=== PATIENT | male | born 1960 | race Caucasian/White ===

== ENCOUNTER 2016-09-07 08:23 | Inpatient (IN) | payer MEDICARE ==
--- NOTE | ~2016-09-07 | CO ---
Unit #: [id number] #: [id number] Patient: RUDDY MCCLAIN [id number] [facility] [place] [facility]. [place], [place] [address] [id number] I MR#: [id number] NAME: RUDDY MCCLAIN ROOM: 218 Age: 56 Sex: M Admission Date: 09/07/2016 : 1960 Attending Physician: Nasreen Chavez M.D. Primary Care Physician: Jonathon Roman M.D. Consultation Date: 09/10/2016 CONSULTATION REPORT REASON FOR CONSULTATION Followup. DISCUSSION Mr. Ruddy Mcclain is a 56-year-old white male seen in room 218 bed 1 on 09/10/16 at [facility]. Patient was pleasant and cooperative, still somewhat confused. Patient requires some redirection but no agitation. Patient reports sleeping well, still having a problem with the anxiety, compliant with medication, no side effect from medication. Denied any hallucination but still guarded, paranoid, denied any suicidal or homicidal ideation, currently on Ativan 1 mg t.i.d., Cogentin 1 mg t.i.d. and haloperidol 5 mg t.i.d. Patient is also on Desyrel 100 mg q.h.s. for sleep. REVIEW OF SYSTEMS Complete review of systems is unremarkable. MENTAL STATUS EXAMINATION VITAL SIGNS: Temperature 97.6, heart rate 80, respirations 18, blood pressure 135/70, oxygen saturation 99%. GENERAL APPEARANCE: Patient dressed casually in hospital attire. ATTENTION SPAN AND CONCENTRATION: Fair to poor. SPEECH: Slow. ORIENTATION: Oriented in place and self. MOOD AND AFFECT: Labile. THOUGHT PROCESS: Circumstantial. THOUGHT CONTENT: Guarded, paranoid but denied any thoughts of harming self or others. Still having problem with the confusion. MEMORY: Recent and remote memory Poor. LANGUAGE: Fair. FUND OF KNOWLEDGE: Fair to slightly impaired. INSIGHT AND JUDGMENT: Fair to slightly impaired. DIAGNOSES PSYCHIATRIC 1. Delirium, F05. 2. Opiate use disorder, moderate to severe, F11.20. 3. ASSESSMENT/PLAN 1. Supportive psychotherapy and psychoeducation provided to patient. 2. Educated about benefits and side effects of medication and course and prognosis of illness. Unit #: [id number] #: [id number] Patient: RUDDY MCCLAIN 3. Advised to continue with current medication combination. If needed, we will make further adjustment on medication. 4. Advised to hold Haldol and Ativan if patient too sleepy. Dictated by... Alexandra Boyd/arash TD: 09/10/2016 14:29 JOB #: [id number] CONSULTATION REPORT Page 1 of 1 X Israel Armenta MD CONSULTATION REPORT
--- NOTE | ~2016-09-07 | CT71 ---
[facility] A Service of [facility] RADIOLOGY TEXT RESULTS PATIENT: RUDDY MARTINEZ [facility] 56 UNIT #: [id number] AGE: [address]: GEORGE MURRIETA MD SEX: M ORDER DR: [id number] [facility] [address]. [place], [place] [address] [id number] P MR#: [id number] Acc #: [id number] NAME: RUDDY MARTINEZ : 1960 SEX: M STUDY DATE/TIME: 09/07/2016 10:12 UNIT: [facility] ROOM: STUDY DESCRIPTION: CT Head Wo Contrast Attending Physician: Donato Mcintosh M.D. Ordering Physician: Donato Mcintosh M.D. Primary Care Physician: Du Renteria M.D. MEDICAL IMAGING REPORT This report is preliminary unless electronic signature is present EXAM CT head without contrast dated 09/07/[address] head without contrast dated 05/14/2016 HISTORY Patient fell 2-3 days ago, confusion ever since. Patient feels like floating. TECHNIQUE This CT exam was performed with one or more of the following radiation dose reduction techniques: automatic exposure control, adjustment of mA and/or kV according to patient size, and iterative reconstruction. FINDINGS CT of the head was obtained without contrast in the axial plane as per the protocol. Diffuse age-appropriate parenchymal volume is seen. There is mild prominence of the ventricles which is stable in the last 4 months. No space-occupying intracranial mass, mass effect, midline shift or hydrocephalus. Nasal septum is deviated to the right. Mastoid air cells, paranasal sinuses are well-aerated. Orbits with the ocular structures do not demonstrate any significant abnormality. IMPRESSION No demonstrable acute or new abnormality. Dictated by... Noah Chandra M.D. THIS IS AN ELECTRONICALLY VERIFIED REPORT Noah Chandra M.D. at 09/07/2016 3:20 PM CPR/jw [facility] A Service of [facility] RADIOLOGY TEXT RESULTS PATIENT: RUDDY MARTINEZ [facility] [address] : [birth year] UNIT #: [id number] AGE: [address]: GEORGE MURRIETA MD SEX: M ORDER DR: TD: 09/07/2016 11:18 JOB #: [id number] MEDICAL IMAGING REPORT Page 1 of 1 COPY
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
--- NOTE | ~2016-09-07 | CO ---
Unit #: [id number] #: [id number] Patient: RUDDY MARTINEZ [id number] [facility] [address]. [place], [place] [address] [id number] I MR#: [id number] NAME: RUDDY MARTINEZ ROOM: 218 Age: 56 Sex: M Admission Date: 09/09/2016 : 1960 Attending Physician: Nasreen Chavez M.D. Primary Care Physician: Jonathon Roman M.D. Consultation Date: 09/12/2016 CONSULTATION REPORT REASON FOR CONSULTATION Followup. DISCUSSION Mr. Velásquez is a 56-year-old white male seen in room 218 bed-1 on 09/13/16 at [facility]. Patient continues to be confused, needing close monitoring, needing hand restraints. Vital signs - 98.3, 89, 20, 116/83. Oxygen saturation 98%. Patient compliant with medication. Patient still somewhat guarded, withdrawn, flat, sad, dysphoric. Mood labile. Confused, needing redirection. REVIEW OF SYSTEMS Complete review of systems unremarkable. MENTAL STATUS EXAMINATION VITAL SIGNS: Please see above. GENERAL APPEARANCE: Patient dressed in hospital attire, lying in bed, somewhat restless, moving his hand restraint. Attention span and concentration poor. Speech somewhat rapid. Oriented in self and place. Mood and affect labile. Thought process circumstantial. Thought content - guarded, paranoid. Recent and remote memory poor. Language - fair. Fund of knowledge impaired. Insight and judgment impaired. DIAGNOSIS PSYCHIATRIC: Delirium - F050 Use disorder, moderate - F11.20 ASSESSMENT/PLAN 1. Supportive psychotherapy and psychoeducation provided to patient but patient unable to comprehend much. 2. Continue with current medications and (1) protocol. If needed, consider further additional medication. 3. slate worker is currently looking for appropriate placement. Suggest [facility] unit. Please feel free to call if any questions. Telephone number [phone]. Dictated by... Israel Armenta M.D. DUANE/brian Unit #: [id number] #: [id number] Patient: RUDDY MARTINEZ TD: 09/14/2016 06:17 JOB #: [id number] CONSULTATION REPORT Page 1 of 1 X Israel Armenta MD CONSULTATION REPORT
--- NOTE | ~2016-09-07 | CO ---
Unit #: [id number] #: [id number] Patient: RUDDY MCCLAIN [id number] [address] [place], [place] [address] [id number] I MR#: [id number] NAME: RUDDY MCCLAIN ROOM: 218 Age: 56 Sex: M Admission Date: 09/09/2016 : 1960 Attending Physician: Nasreen Chavez M.D. Primary Care Physician: Jonathon Roman M.D. Consultation Date: 09/11/2016 CONSULTATION REPORT REASON FOR CONSULTATION Followup. DISCUSSION Mr. Ruddy Mcclain is a 56-year-old white male, seen in room 218, bed 1 on 09/11/2016. The patient was admitted with UTI and altered mental status. Still in bilateral hand restrain, but able to answer some of the questions appropriately, still confused, guarded. The patient's labs showed HIV test negative. The patient's thyroid function tests within normal range. The patient is still having symptoms of psychosis, confusion, required redirection and bilateral hand restrain. The patient's vital signs; temperature 98.4, pulse 85, respiratory rate 18, blood pressure 134/80, oxygen saturation 98%. REVIEW OF SYSTEMS Complete review of systems is unremarkable. MENTAL STATUS EXAMINATION Vital signs, please see above. General appearance, the patient dressed in hospital attire, lying comfortably in bed, bilateral hands needing restraint. Currently receiving dialysis. Cooperative. Attention span and concentration, poor. Speech, disorganized. Oriented in self. Mood and affect, labile. Thought process, circumstantial. Thought content, guarded and paranoid. Recent and remote memory, poor. Language, fair. Fund of knowledge, impaired. Insight and judgment, impaired. DIAGNOSES Psychiatric: Delirium, F05; opioid use disorder, moderate, F11.20. ASSESSMENT/PLAN 1. Supportive psychotherapy and psychoeducation provided to patient, but the patient unable to understand much. 2. Continue with current medication and therapeutic protocol. If needed, consider further adjustment of medication. 3. Plan to consider transferring the patient to a Geropsych Unit once the patient is medically stable. Please feel free to call if any questions, telephone #[phone]. Dictated by... Israel Armenta M.D. SZC/trevor Unit #: [id number] #: [id number] Patient: RUDDY MCCLAIN TD: 09/12/2016 02:19 JOB #: [id number] CONSULTATION REPORT Page 1 of 1 X Israel Armenta MD CONSULTATION REPORT
--- NOTE | ~2016-09-07 | XA166 ---
[facility] A Service of [facility] RADIOLOGY TEXT RESULTS PATIENT: RUDDY MARTINEZ LOCATION: [facility] 218-01 : 56 UNIT #: [id number] AGE: [address]: Nasreen Chavez MD SEX: M ORDER DR: [id number] [facility] [address]. [place], [place] [address] [id number] P MR#: [id number] Acc #: [id number] NAME: RUDDY MARTINEZ : 1960 SEX: M STUDY DATE/TIME: 09/07/2016 10:00 UNIT: [facility] ROOM: STUDY DESCRIPTION: XA PICC Line Placement WO Port Attending Physician: Donato Mcintosh M.D. Ordering Physician: Donato Mcintosh M.D. Primary Care Physician: Du Renteria M.D. MEDICAL IMAGING REPORT This report is preliminary unless electronic signature is present EXAM Right arm PICC insertion, 09/07/2016. HISTORY IV access needed for antibiotic therapy. PRE-PROCEDURE The procedure was explained to the patient and/or patient manufacturer representative including risks, benefits, potential complications and potential for alternative forms of treatment. Informed consent was obtained, and prior to initiating the procedure a formal timeout procedure was performed. PROCEDURE Using full standard sterile barrier technique, including caps, gowns, gloves, masks, as well as sterile skin preparation and standard sterile draping, the right arm was prepped and draped in the usual fashion, and real-time sterile ultrasound guidance was used to localize an arm vein and to confirm vessel patency. A hard copy ultrasound image was recorded. After local anesthesia with 1% Xylocaine, the vein was punctured using real-time sterile ultrasound guidance, and an 0.018 guidewire was advanced into the superior vena cava, using fluoroscopic guidance. A 5-Citizen [place] dual-lumen PICC was then measured and deployed with the tip positioned in the superior vena cava. The position of the line was documented with a radiographic image. The line was secured in place with an adhesive dressing and an antibiotic patch was applied. Single fluoroscopic spot image. Total fluoro time was 0.1 minutes. IMPRESSION Successful placement of a 5-[place]izen [place], dual-lumen PowerPICC via the arm under ultrasound and fluoroscopic guidance. The tip of the PICC is in good position in the superior vena cava. [facility] A Service of [facility] RADIOLOGY TEXT RESULTS PATIENT: RUDDY MARTINEZ LOCATION: [facility] 218- : 56 UNIT #: [id number] AGE: [address]: Nasreen Chavez MD SEX: M ORDER DR: Dictated by... Wilman Francisco M.D. THIS IS AN ELECTRONICALLY VERIFIED REPORT Wilman Francisco M.D. at 09/11/2016 10:38 AM KACI/lauren TD: 09/07/2016 11:25 JOB #: [id number] MEDICAL IMAGING REPORT Page 1 of 1 COPY
--- NOTE | ~2016-09-07 | CO ---
Unit #: [id number] #: [id number] Patient: RUDDY MCCLAIN [id number]. [place], [place] [address] [id number] I MR#: [id number] NAME: RUDDY MCCLAIN ROOM: 218 Age: 56 Sex: M Admission Date: 09/09/2016 : 1960 Attending Physician: Nasreen Chavez M.D. Primary Care Physician: Jonathon Roman M.D. Consultation Date: 09/14/2016 CONSULTATION REPORT REASON FOR CONSULTATION Followup. HISTORY OF PRESENT ILLNESS MR. Ruddy Mcclain is a 56-year-old white male seen in room 218, bed 1 at [facility] on 09/14/2016. The patient was sleeping good. The patient is currently not in restraint, but has a sitter. No agitation. Redirectable, but still confused. Vital signs stable, 98.3, 86, 20, 124/82, oxygen saturation 100%. The patient has a long history of substance abuse, IV drug abuse. The patient's spouse says that she feels overwhelmed with the patient's fear. She reported that she has a disabled daughter at home. The patient was denied for inpatient psychiatric facility because of his medical needs. The patient is still having some disorganized thought process, but no aggressive behavior. Complete review of systems is unremarkable. MENTAL STATUS EXAMINATION General appearance, the patient is dressed in hospital attire. Vital signs stable. Hygiene and grooming fair. Attention and concentration poor. Speech is circumstantial. Oriented to self and place. Mood and affect labile. Thought process circumstantial. Thought content guarded. Denied any thoughts of harming himself or others. Recent and remote memory poor. Language fair. Fund of knowledge fair to slightly impaired. Insight and judgment fair to slightly impaired. DIAGNOSES Psychiatric: Delirium, F05, improving. Opiate use disorder, moderate to severe, F11.20. Psychosis, n.o.s., F29.0. ASSESSMENT/PLAN 1. Supportive psychotherapy, psychoeducation provided to the patient. 2. Educated about benefits and side effects of medication and course and prognosis of illness. 3. Advised to continue with current medication with a plan to consider sending the patient home with in-home services as the patient does show improvement and did not require any seclusion or restraints. 4. Advised to continue with current medications. Dictated by... Israel Armenta M.D. Unit #: [id number] #: [id number] Patient: RUDDY MCCLAIN SZC/gz TD: 09/15/2016 09:08 JOB #: [id number] CONSULTATION REPORT Page 1 of 1 X Israel Armenta MD X CONSULTATION REPORT
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
--- NOTE | ~2016-09-07 | EKG ---
PATIENT: RUDDY MARTINEZ UNIT #: [id number] Ventricular Rate: 79 BPM Atrial Rate: 79 BPM P-R Interval: 158 ms QRS Duration: 88 ms Q-T Interval: 406 ms QTC Calculation(Bezet): 465 ms P Henderson: -4 degrees Calculated R Henderson: -21 degrees Calculated T Henderson: 35 degrees Diagnosis Line: Normal sinus rhythm Diagnosis Line: Normal ECG Diagnosis Line: Diagnosis Line: Confirmed by ARIELLA NEGRON MD ([id number]) on 09/10/2016 Diagnosis Line: 3:57:32 PM INTERPRETING MD: JAMIL BAUER
--- NOTE | ~2016-09-07 | HP ---
Unit #: [id number] #: [id number] Patient: RUDDY MARTINEZ [id number] [address] [place], [place] [address] [id number] MR#: [id number] NAME: RUDDY MARTINEZ ROOM: Age: 56 Sex: M Admission Date: 09/07/2016 : 1960 Attending Physician: Donato Mcintosh M.D. Primary Care Physician: Jonathon Roman M.D. HISTORY AND PHYSICAL CHIEF COMPLAINT Altered mental status. HISTORY OF PRESENT ILLNESS The patient is a 56-year-old male with a history of IV opiate/heroin use and has been on methadone, history of end stage renal disease on hemodialysis, cirrhosis secondary to Hep-C, hypertension, hypothyroidism, anxiety, brought to the emergency room with altered mental status. The patient fell two to three days ago and has been confused since last one week. The patient is (1) and speaking gibberish. The patient denies any fever or chills, nausea or vomiting. The patient was found to have a prior UTI with 3+ leukocyte esterase and 200 to 300 urine WBCs. The patient had dialysis yesterday and was unable to finish the last hour of the dialysis secondary to the above complaints. The patient is being admitted for the above reasons. PAST MEDICAL HISTORY 1. History of IV opiate and heroin abuse in the past, currently on methadone. 2. History of bilateral leg wounds. 3. Stage 2-3 cirrhosis. 4. Hepatitis. 5. Hypertension. 6. Hypothyroidism. 7. End stage renal disease, on hemodialysis. 8. Anxiety. 9. Nephrolithiasis. 10. Chronic thrombocytopenia secondary to liver disease. PAST SURGICAL HISTORY 1. History of lithotripsy. 2. Fistula, left upper extremity. MEDICATIONS He is on: 1. Renagel. 2. Lipitor. 3. Trazodone. 4. Acetaminophen. 5. Flexeril. 6. Lorazepam. 7. Cogentin. 8. Levothyroxine. Unit #: [id number] #: [id number] Patient: RUDDY MARTINEZ ALLERGIES He is allergic to penicillin. SOCIAL HISTORY The patient is and lives with his . He has a history of smoking in the past. History of IV drug use in the past. Currently, his stated he is not using. FAMILY HISTORY Reviewed and none. REVIEW OF SYSTEMS Fourteen point review of systems was performed and only pertinent positive findings are described above, remaining are negative. PHYSICAL EXAMINATION GENERAL: The patient is lying on the bed, not in acute distress. VITALS: Temperature 97.8, pulse 84, respiratory rate 15, blood pressure 129/72, sat'ing 100% at room air. HEAD: Atraumatic, normocephalic. EENT: Pupils equal, round, reactive to light and accommodation. Extraocular movements are intact. Dry mucous membranes. NECK: Supple. LUNGS: Decreased air entry at the bases. HEART: Regular rate and rhythm. ABDOMEN: Soft. Positive bowel sounds. EXTREMITIES: Positive for left upper extremity fistula and PICC line in the right upper extremity. Bilateral lower extremity wounds. NEURO: Alert, awake, oriented x1. PSYCH: (2) . DIAGNOSTIC STUDIES LABORATORY DATA: Glucose 101, BUN 22, creatinine 0.3, sodium 133, potassium 3.5, chloride 97, bicarb 24, calcium 8.6, total protein 6.4, albumin 3.4, AST 57, ALT 22, alkaline phosphatase 55. Ammonia level is 11. Acetaminophen less than 10. Salicylate less than 4. Alcohol less than 5. INR is 1. WBC 4.7, hemoglobin 10.1, hematocrit 30.5, platelet 84. Urine tox is positive for benzodiazepine. UA shows 3+ leukocyte esterase, 100 glucose, 3+ blood, 10-25 urine RBCs, 200-300 urine WBCs and negative bacteria. IMAGING: Chest x-ray shows chronic blunting of the right CP angle, likely reflecting chronic pleural reaction as described. No new consolidation, pneumothorax or significant effusion. CT of the head show no demonstrable acute or new abnormality. ASSESSMENT AND PLAN 1. Altered mental status. 2. Urinary tract infection. 3. End stage renal disease, on hemodialysis. Plan is to admit the patient as observation to telemetry. Continue with Unit #: [id number] #: [id number] Patient: RUDDY MARTINEZ IV antibiotics with levofloxacin and consult renal for the hemodialysis and repeat the labs in the morning. Hold the lorazepam. Further recommendations will follow. Dictated by Barbara Melissa M.D. STEVE/df TD: 09/07/2016 13:12 JOB #: [id number] HISTORY AND PHYSICAL Page 1 of 1 X X HISTORY AND PHYSICAL
--- NOTE | ~2016-09-07 | CO ---
Unit #: [id number] #: [id number] Patient: RUDDY MCCLAIN [id number] [address] [place], [place] [address] [id number] MR#: [id number] NAME: RUDDY MCCLAIN ROOM: 316 Age: 56 Sex: M Admission Date: 09/07/2016 : 1960 Attending Physician: Nasreen Chavez M.D. Primary Care Physician: Jonathon Roman M.D. Consultation Date: 09/07/2016 CONSULTATION REPORT REASON FOR CONSULTATION Renal insufficiency. Thank you very much for asking me to see this patient in consultation. HISTORY OF PRESENT ILLNESS Mr. Ruddy Mcclain is a 56-year-old male with history of end-stage renal disease, on hemodialysis every Sunday, , and Sunday, some questioned if he missed dialysis on Sunday, and some questionable he had partial dialysis yesterday, who presented to the hospital with increased confusion, more agitation, was admitted. The patient had negative CT of the head. Upon presentation, we were asked to see the patient because of his kidney problems. The patient currently is arousable, but confused, appears delusional as well. He denies any chest pain or shortness of breath, but again very cloudy. PAST MEDICAL HISTORY History of end-stage renal disease, on hemodialysis again every Sunday, , Sunday; history of IV drug abuse of heroin, opioids, and methadone in the past; history of CVA; history of hepatitis C; history of hypothyroidism; history of anxiety; history of hypertension; history of cirrhosis; history of nephrolithiasis; history of thrombocytopenia. ALLERGIES Include penicillin. SOCIAL HISTORY Positive smoker. Positive drug use in the past. Although the note says according to his that he has not done any while. MEDICATIONS His medications upon presentation at home include Renvela 600 mg p.o. t.i.d. with meals, Lipitor 40 mg a day, Desyrel 100 mg at night, Tylenol/Benadryl p.r.n., Flexeril 10 mg at night, lorazepam 1 mg b.i.d., Cogentin 1 mg t.i.d., and levothyroxine 100 mcg a day. REVIEW OF SYSTEMS As mentioned in the HPI. Again very difficult to assess him. He is really asking most questions they were all negative. FAMILY HISTORY Noncontributory. PHYSICAL EXAMINATION Unit #: [id number] #: [id number] Patient: RUDDY MCCLAIN VITAL SIGNS: T-max 98.5, pulse is 80 to 100, blood pressure 129 to 140 over 72 to 84. HEENT: Normocephalic and atraumatic. Pupils are equal, round, and reactive to light. Extraocular muscles are intact. Hearing appears to be normal. Mouth is dry. No erythema. No exudate. NECK: Supple. No adenopathy. CARDIAC: Regular rhythm without a rub. No S3 or S4. LUNGS: Sounds clear bilaterally. No wheezes, rhonchi, or rales. ABDOMEN: Bowel sounds positive. Nontender. Soft. EXTREMITIES: Some trace lower extremity swelling. He has a fistula in his left arm with good thrill. NEUROLOGIC: Again he is able to move all extremities, but confused. : Deferred. DIAGNOSTIC STUDIES LABORATORY RESULTS: Shows sodium of 133, potassium 3.5, chloride is 97, bicarb is 24, BUN and creatinine 22 and 8.3, glucose 101, calcium is 8.6, albumin is 3.4. Ammonia level is 11. Negative Tylenol. Negative aspirin. Negative alcohol levels. Drug screen is positive for benzodiazepines. Rest is negative. UA shows specific gravity of 1.08, 2+ protein, negative ketones, 10 to 25 rbc's, 200 to 300 wbc's. Hemoglobin is 10.4, white count 4700, platelets 84,000. INR is 1.0. ASSESSMENT AND PLAN 1. End-stage renal disease. The patient with dialysis every Sunday, , Sunday. We will plan on dialyzing later today and then continue Sunday, , and Sunday dialysis. The patient's volume status is not significantly overloaded and his electrolytes are stable. We will follow. 2. History of anemia. Hemoglobin is above 11. We will hold EPO unless hemoglobin gets below 11. 3. Cirrhosis with ammonia level only 11. 4. Decreased mental status, delusional, questionable etiology. Further workup and treatment per primary. 5. Probable urinary tract infection. I agree with antibiotics. Await urine culture. Dictated by... Alexandra Mathew/trevor TD: 09/09/2016 02:49 JOB #: [id number] CONSULTATION REPORT Page 1 of 1 X Mannie Cooley MD CONSULTATION REPORT
--- NOTE | ~2016-09-07 | OR ---
Unit #: [id number] #: [id number] Patient: RUDDY MARTINEZ [id number] [facility]. [place], [place] [address] [id number] MR#: [id number] NAME: RUDDY MARTINEZ ROOM: 218 Date of Procedure: 09/13/2016 Admission Date: 09/09/2016 Surgeon: Ravindra Sanford M.D. : 1960 Attending Physician: Nasreen Chavez M.D. Primary Care Physician: Jonathon Roman M.D. OPERATIVE REPORT PROCEDURE PERFORMED 1. Left AV graft thrombectomy. 2. Left upper extremity fistulogram. 3. Axillary vein venoplasty (10 x 40 mm Emmet balloon). 4. Venous stent, 10 x 40 mm (Bush). INDICATIONS FOR PROCEDURE This is a 56-year-old male, IV drug user, who has been known to shoot up heroin through his shunt. He was admitted to the hospital for altered mental status changes and urinary tract infection. He went to dialysis the other day, dialyzing on Sunday, , Sunday, and his graft was noted to be thrombosed. We were asked by his supervisor inventory merchandising to reestablish dialysis access. Of note, given the fact he is currently an IV drug user, if unsuccessful, a tunneled dialysis catheter was not to be placed at the request of supervisor inventory merchandising because of infection risk. I talked to the patient about the risks and benefits of the operation. The risks include, but are not limited to, bleeding, blood vessel injury, inability to relieve the stenosis and reestablish flow, graft infection, and need for further procedures. The primary benefit of the procedure would be to establish dialysis access, so the patient can continue to receive dialysis. The patient expressed understanding, and elected to proceed with the operation. PREOPERATIVE INDICATIONS Arteriovenous graft with complication, thrombosis. POSTOPERATIVE DIAGNOSIS Arteriovenous graft with complication, thrombosis. ELEVATOR ATTENDANT Donato Pierre CSA. DESCRIPTION OF PROCEDURE After informed consent was obtained, the patient was brought to the operating table and placed in supine position. The patient had successful induction and intubation by anesthesia. The patient's left arm and chest were then prepped and draped in standard fashion. At this point, a time-out procedure was performed. The left AV graft had no pulse. I made an incision perpendicular to the graft above the elbow. I dissected through the subcutaneous tissue and immediately identified the graft. Circumferential dissection of the graft was obtained and vessel loop control was obtained. I then made a graftotomy with a #11 blade. There Unit #: [id number] #: [id number] Patient: DARGAVELL,RUDDY was no flow. I had some difficulty advancing the Traci catheter, by itself, and had to use the introducer wire that came with it. We were able to advance the Traci catheter balloon to approximately 30 cm, and I felt to go beyond the axilla into the chest. We did retrieve some thrombus. Multiple passes were made until there was no significant thrombus that was retrieved. There was good venous back bleeding. I then advanced a wire up into the graft, and over the wire to advanced an 8-Tajik sheath. I then performed a left upper extremity fistulogram. This demonstrated there was no significant stenosis within the graft. There was venous anastomotic stenosis, roughly 95%. I performed a cranial view, which opened out the stenosis a little bit better. There was also an axillary vein stenosis of roughly 80-90%, which was apparently the area that was treated before back in 05/[address] Willis. There was no evidence of central stenosis of the subclavian, innominate, or SVC. I then advanced a stiff angled Glidewire into the SVC. I advanced a 10 x 40 mm Emmet balloon and insufflated it for up to 2 minutes. I treated both the axillary vein stenosis and noticed some wasting. I also went up on the venous anastomosis. Upon completion of the venoplasty, subsequent venogram still demonstrated some residual recoil of roughly 50% of the axillary vein anastomosis. I again treated this with a 10 x 40 mm Emmet balloon, however, I went up to burst pressure of 22 mmHg. I held insufflation for 3 minutes. Subsequent venogram demonstrated an improvement of this area. I chose not to stent it, as I do not have a Viabahn stent, and it did respond reasonably well to balloon insufflation. The venous anastomosis did not respond that well to balloon insufflation, and I was hesitant to be more aggressive with balloon angioplasty. As a result, I selected a 10 x 40 mm Bush stent, which was deployed across the venous anastomosis. Ideally I would have used a Viabahn stent, however, none were available to me. After deployment of the stent, I postdilated it with a 10 x 40 mm Emmet balloon, but not more than nominal pressure. Subsequent venogram demonstrated brisk flow throughout the venous anastomosis with only roughly 10% residual recoil. I then turned my attention towards the arterial anastomosis. I dissected out more control of the graft proximally. I then advanced the 4-Tajik Traci balloon and retrieved fresh thrombus. After the third pass of the thrombectomy catheter, no additional clot was retrieved. There was brisk inflow. I advanced the wire into the arterial limb, advanced an 8-Tajik sheath. I shot a retrograde fistulogram to evaluate the arterial anastomosis and it appeared widely patent. I then closed the graftotomy with 6-0 Prolene in a running fashion. Adequate hemostasis was obtained. This wound was then closed with 3-0 Vicryl in deep dermal fashion and 4-0 Monocryl in subcuticular fashion. The wound was then covered with Dermabond. At the end of the case, all counts were correct and I was present for the entire duration of procedure. Total contrast used was 80 mL and total fluoro time was 5 minutes and 45 seconds. ESTIMATED BLOOD LOSS 200 mL. FINDINGS 1. Widely patent arterial anastomosis. 2. Venous anastomosis was stenotic, 90-95%. 3. Axillary vein stenosis, 80-90%. SPECIMEN Unit #: [id number] #: [id number] Patient: RUDDY MARTINEZ None. Dictated by... Alexandra Lake TD: 09/13/2016 12:57 JOB #: [id number] OPERATIVE REPORT Page 1 of 1 X X PROCEDURE OPERATIVE NOTE
--- NOTE | ~2016-09-07 | CO ---
Unit #: [id number] #: [id number] Patient: RUDDY MARTINEZ [id number] [facility] [address]. [place], [place] [address] [id number] I MR#: [id number] NAME: RUDDY MARTINEZ ROOM: 316 Age: 56 Sex: M Admission Date: 09/07/2016 : 1960 Attending Physician: Nasreen Chavez M.D. Primary Care Physician: Jonathon Roman M.D. Consultation Date: 09/08/2016 CONSULTATION REPORT REASON FOR CONSULTATION Delirium, opioid abuse. HISTORY OF PRESENT ILLNESS Mr. Velásquez is a 56-year-old male, seen on 09/08/2016 in room 316, bed 1 at [facility]. The patient was confused, agitated, and received p.r.n. Haldol, Cogentin, Ativan last night and Haldol again this morning for agitation, needing restraints. The patient was unable to give any coherent history, tried to elope. The patient has a history of opioid and heroin abuse IV, also methadone. The patient has a history of hepatitis C, hypertension, hypothyroidism, cirrhosis, admitted with altered mental state. The patient also has end-stage renal disease. The patient unable to give any coherent history. PAST PSYCHIATRIC HISTORY Remarkable for history of depression, anxiety, substance abuse. MEDICAL HISTORY AND MEDICATION HISTORY History of IV opioid abuse, heroin abuse, currently on methadone. Bilateral leg wounds, stage 2 to 3 cirrhosis, hepatitis, hypertension, hypothyroidism, end-stage renal disease on hemodialysis, anxiety, nephrolithiasis, chronic thrombocytopenia secondary to liver disease. MEDICATIONS Lipitor, trazodone, acetaminophen, Flexeril, lorazepam, Cogentin, levothyroxine. ALLERGIES Penicillin. FAMILY HISTORY AND SOCIAL HISTORY The patient lives with his , has a good support. No history of abuse, but history of substance abuse as mentioned above. REVIEW OF SYSTEMS Complete review of systems is remarkable for agitation. MENTAL STATUS EXAMINATION Vital signs; temperature 98.3, pulse 89, respirations 20, blood pressure 143/81, oxygen saturation 99%. General appearance; the patient dressed casually. Attention span and concentration, poor. Speech, disorganized. Oriented in self. Mood and affect, labile. Thought process, circumstantial. Thought content, guarded, paranoid, agitated, but denied any thoughts of harming self or others. Recent and remote memory, poor. Unit #: [id number] #: [id number] Patient: RUDDY MARTINEZ Language, fair. Fund of knowledge, impaired. Insight and judgment, impaired. DIAGNOSES Psychiatric: Delirium, F05; opioid use disorder, moderate to severe, F11.20. Secondary diagnosis: Deferred. Medical diagnosis: Please refer to H and P. Stressors: Psychosocial stressors. ASSESSMENT AND PLAN Supportive psychotherapy and psychoeducation provided to patient, but the patient unable to comprehend. Advised Haldol 5 mg t.i.d., Cogentin 1 mg t.i.d., and Ativan 1 mg t.i.d. Advised to hold medication if the patient too sleepy. We will closely monitor. If needed, consider further adjustment of medication. Please feel free to call if any questions telephone #[phone]. Dictated by... Alexandra Boyd/trevor TD: 09/08/2016 19:02 JOB #: [id number] CONSULTATION REPORT Page 1 of 1 X Israel Armenta MD X CONSULTATION REPORT
--- NOTE | ~2016-09-07 | CR72 ---
[facility] A Service of [facility] RADIOLOGY TEXT RESULTS PATIENT: RUDDY MARTINEZ LOCATION: C3A 316-01 : 56 UNIT #: [id number] AGE: [address]: GEORGE MURRIETA MD SEX: M ORDER DR: [id number] [place], [place] [address] [id number] MR#: [id number] Acc #: [id number] NAME: RUDDY MARTINEZ : 1960 SEX: M STUDY DATE/TIME: 09/07/2016 9:08 UNIT: [facility] ROOM: STUDY DESCRIPTION: CR Chest Single View Portable Attending Physician: Donato Mcintosh M.D. Ordering Physician: Donato Mcintosh M.D. Primary Care Physician: Du Renteria M.D. MEDICAL IMAGING REPORT This report is preliminary unless electronic signature is present EXAM Frontal chest 09/07/2016 INDICATION 56-year-old male with altered mental status, confusion, shortness of air, symptoms began 2 days ago after a fall. TECHNIQUE Frontal chest compared with 05/14/2016. FINDINGS Cardiac silhouette is within normal limits. The vascularity is normal. There is no dense consolidation. There is blunting of the right CP angle which is probably unchanged from the prior study and therefore likely reflects chronic pleural reaction rather than a chronic trace to small right effusion. No pneumothorax. IMPRESSION Chronic blunting of the right CP angle likely reflecting chronic pleural reaction as described. No new consolidation, pneumothorax or significant effusion. Dictated by... Jagdish Chowdhury M.D. THIS IS AN ELECTRONICALLY VERIFIED REPORT Jagdish Chowdhury M.D. at 09/07/2016 5:31 PM UCHE/dayo TD: 09/07/2016 10:05 JOB #: [id number] [facility] A Service of [facility] RADIOLOGY TEXT RESULTS PATIENT: RUDDY MARTINEZ LOCATION: [facility] 316-01 : 56 UNIT #: [id number] AGE: [address]: GEORGE MURRIETA MD SEX: M ORDER DR: MEDICAL IMAGING REPORT Page 1 of 1 COPY
--- NOTE | ~2016-09-07 | DS ---
Unit #: [id number] #: [id number] Patient: RUDDY MARTINEZ [id number] [place], [place] [address] [id number] MR#: [id number] NAME: RUDDY MARTINEZ ROOM: 218 Age: 56 Sex: M Admission Date: 09/07/2016 : 1960 Discharge Date: 09/14/2016 Attending Physician: Nasreen Chavez M.D. Primary Care Physician: Jonathon Roman M.D. DISCHARGE SUMMARY ADDENDUM Please see the discharge summary dictated from September 11, 2016 for details of initial part of hospital stay. During the time of transition of discharge to possible inpatient psych rehab, it was noted patient's AV fistula on left arm began to malfunction. Consultation was placed to vascular services. Patient underwent ultimately on September 13, 2016, left AV graft thrombectomy as well as left upper extremity fistulogram. Afterwards, dialysis was performed x2. Fistula seems to be working appropriately and now patient currently is stable for discharge. I reviewed his hospital course, medications, as well as, overall prognosis with Dr. Armenta of psychiatry services. At this point in time, he does not meet inpatient criteria for psychiatric facility. Therefore, he will be discharged home. His medication regimen at time of discharge will be reviewed by Dr. Armenta in regard to his medications including Cogentin, Haldol, as well as, Ativan. Ultimately, he will follow up as an outpatient with his primary care physician as well as a psychiatrist. This will be set up at time of discharge. Overall, this patient's long-term prognosis is poor secondary to his lack of insight into his disease, ongoing IV drug abuse. FINAL DISCHARGE DIAGNOSES Please see above includin. Acute psychosis with underlying psychiatric disorder. 2. Ongoing IV drug abuse. 3. Pyuria with urine culture negative. 4. End-stage renal disease on hemodialysis. 5. Hyperlipidemia. 6. Hepatitis C. 7. Cirrhosis of the liver. 8. Malfunctioning arteriovenous fistula, status post thrombectomy. DISCHARGE MEDICATIONS Remain unchanged with review underway by Dr. Armenta of psychiatry services. Unit #: [id number] #: [id number] Patient: RUDDY MARTINEZ PROGNOSIS Long-term prognosis of this patient is poor. Life expectancy is likely less than one year. Dictated by... Alexandra Sanchez TD: 09/15/2016 11:45 JOB #: [id number] DISCHARGE SUMMARY Page 1 of 1 X Nasreen Chavez MD X DISCHARGE SUMMARY
--- NOTE | ~2016-09-07 | CO ---
Unit #: [id number] #: [id number] Patient: RUDDY MARTINEZ [id number] [address] [address] [id number] I MR#: [id number] NAME: RUDDY MARTINEZ ROOM: 218 Age: 56 Sex: M Admission Date: 09/09/2016 : 1960 Attending Physician: Nasreen Chavez M.D. Primary Care Physician: Jonathon Roman M.D. Consultation Date: 09/13/2016 CONSULTATION REPORT REASON FOR CONSULTATION Followup. DISCUSSION Mr. Velásquez is a 56-year-old male seen in room 218, bed 1, on 09/13/2016. Patient diagnosed with IV drug abuse, delirium, admitted with altered mental state, diagnosed with end stage renal disease. Patient receiving dialysis on Sunday, Sunday, , Sunday schedule. Patient also diagnosed with cirrhosis of the liver, hepatitis C, hypertension. Patient still needing restraint bilateral arms and confusion, agitation, mood lability. Patient did not show any major aggressive episode, while compliant with medications. PHYSICAL EXAMINATION VITAL SIGNS: Patient's vital signs is a 98.6, 80, 20, 121/73, oxygen saturation 97%. GENERAL APPEARANCE: Patient dressed in hospital attire, needing bilateral hand restraint. ATTENTION SPAN AND CONCENTRATION: Poor. SPEECH: Disorganized. ORIENTED: Oriented to self and place. MOOD AND AFFECT: Labile. THOUGHT PROCESS: Circumstantial. THOUGHT CONTENT: Guarded, paranoid. MEMORY: Poor. Recent and remote memory fair to poor. LANGUAGE: Fair. INSIGHT AND JUDGMENT: Fair to slightly impaired. DIAGNOSTIC STUDIES PSYCHIATRIC: 1. Delirium F05. 2. Opiate use, moderate to severe, F1l.20. ASSESSMENT/PLAN 1. Supported psychotherapy, psychoeducation provided to patient. 2. Educated about benefits and side effects of medication and course and prognosis of illness. 3. Advised to continue with current medication regimen. If needed, consider further additional medication and currently looking for appropriate place for patient, suggest [facility] or [facility] where patient can be treated for both his condition, dialysis, as well as his substance abuse and current psychiatric condition. Unit #: [id number] #: [id number] Patient: RUDDY MARTINEZ Dictated by... Alexandra Boyd/lizeth TD: 09/14/2016 06:56 JOB #: [id number] CONSULTATION REPORT Page 1 of 1 X Israel Armenta MD X CONSULTATION REPORT
[~2016-09-07 08:23] MED LIST: AUGMENTIN875 MG PO; CALCIUM ACETAT667 M1 PO; CLONIDINE HCL0.3 MG PO; COLACE50 MG PO; FERRO-TIME325 MG PO; K-DUR20 ME1 PO; KLONOPIN PO; LASIX PO; LEXAPRO PO; LOVAZA1 G PO; METHADONE HCL10 MG PO; METHADONE PO; SANTYL15 G1 TP; SYNTHROID0.1 MG PO; VIBRAMYCIN100 M1 PO; VITAMIN D2000 UNI1 PO; XIFAXAN550 MG PO; ZANTAC150 MG PO
[2016-09-07 10:01] LABS: POC - CKMB 1.5 ng/mL (0.0-7.9); POC - TROPONIN <0.05 ng/mL (<=0.05)
[2016-09-07 10:14] LABS: BASOPHIL% 0.7 % (0-2.5); EOSINOPHIL# 0.3 X10e3 (0-0.7); EOSINOPHIL% 7.5 % (0.0-7.0); HEMATOCRIT 30.5 % (38.0-50.0); HEMOGLOBIN 10.1 gm/dL (13.0-16.0); LYMPHOCYTE# 0.9 X10e3 (1.0-3.5); LYMPHOCYTE% 19.6 % (17.0-45.0); MEAN CELL VOLUME 95.3 FL (83-96); MEAN CORPUSCULAR HEMOGLOBIN 31.6 PG (28-34); MEAN CORPUSCULAR HGB CONC 33.2 g/dL (30-36); MEAN PLATELET VOLUME 7.9 FL (6.5-11.5); MONOCYTE# 0.6 X10e3 (0-1.0); MONOCYTE% 12.1 % (3.0-12.0); NEUTROPHIL# 2.8 X10e3 (1.5-7.1); NEUTROPHIL% 60.1 % (40-75); PLATELET COUNT 84 X10e3 (140-420); RED CELL DISTRIBUTION WIDTH 15.4 % (11.0-15.5); WHITE BLOOD COUNT 4.7 X10e3 (4.0-10.5)
[2016-09-07 10:25] LABS: PROTHROMBIN TIME (PATIENT) 10.9 SECONDS (9.6-11.5)
[2016-09-07 10:41] LABS: DIFF IND YES
[2016-09-07 10:44] LABS: PLATELET ESTIMATE DECREASED (NORMAL)
[2016-09-07 10:45] LABS: ANISOCYTOSIS MOD; SCHISTOCYTES PRESENT
[2016-09-07 10:54] LABS: ALBUMIN SERUM 3.4 g/dL (3.5-5.0); ALKALINE PHOSPHATASE 65 U/L (32-92); ALT (SGPT) 22 U/L (10-40); AST (SGOT) 57 U/L (10-42); BILIRUBIN, DIRECT 0.2 mg/dL (0.0-0.2); BILIRUBIN,INDIRECT 0.4 mg/dL (0.0-0.9); BILIRUBIN,TOTAL 0.6 mg/dL (0.2-2.0); BLOOD UREA NITROGEN 22 mg/dL (9-23); BUN/CREATININE RATIO 2.65; CALCIUM SERUM 8.6 mg/dL (8.4-10.2); CARBON DIOXIDE 24 mmol/L (22-31); CHLORIDE 97 mmol/L (100-111); CREATININE SERUM 8.3 mg/dL (0.6-1.4); GLOM FILT RATE Estimated 6.4 mL/min (>60); GLUCOSE FASTING 101 mg/dL (70-110); POTASSIUM 3.5 mmol/L (3.5-5.1); PROTEIN TOTAL SERUM 6.4 g/dL (6.0-8.3); SALICYLATE <4.0 mg/dL; SODIUM 133 mmol/L (135-145)
[2016-09-07 10:55] LABS: ACETAMINOPHEN <10 ug/mL; ALCOHOL BLOOD <5 mg/dL (0)
[2016-09-07 11:26] LABS: URINE SOURCE CLEAN CATCH
[2016-09-07 11:32] LABS: URINE APPEARANCE CLOUDY; URINE BILIRUBIN NEG (NEG); URINE BLOOD 3+ (NEG); URINE COLOR YELLOW; URINE GLUCOSE 100 MG/DL (NEG); URINE KETONE NEG (NEG); URINE LEUKOCYTE ESTERASE 3+ (NEG); URINE NITRATE NEG (NEG); URINE PH 8.5 (5-8); URINE PROTEIN 2+ (NEG); URINE SPECIFIC GRAVITY 1.008 (1.003-1.035); URINE UROBILINOGEN 0.2 MG/DL (NEG)
[2016-09-07 11:35] LABS: CULTURE INDICATED? YES; URINE BACTERIA AUWI NEG (NEGATIVE); URINE SQUAMOUS EPITHELIAL CELL NONE SEEN /[HPF]; UWBCS1 AUWI 200-300 (0-5)
[2016-09-07 11:42] LABS: POC - CKMB 1.4 ng/mL (0.0-7.9); POC - TROPONIN <0.05 ng/mL (<=0.05)
[2016-09-07] MEDS ORDERED: RENAGEL800 MG PO (11:54)
[2016-09-07] MEDS ORDERED: LIPITOR40 MG PO (11:54)
[2016-09-07] MEDS ORDERED: DESYREL100 MG PO (11:55)
[2016-09-07] MEDS ORDERED: EQ ACETAMINOPH PO (11:55)
[2016-09-07] MEDS ORDERED: FLEXERIL10 MG PO (11:56)
[2016-09-07] MEDS ORDERED: LORAZEPAM1 MG PO (11:56)
[2016-09-07] MEDS ORDERED: COGENTIN1 MG PO (11:57)
[2016-09-07] MEDS ORDERED: LEVOTHYROXINE100 MC1 PO (11:58)
[2016-09-07 11:59] LABS: AMPHETAMINE NEG (NEG); BARBITURATES NEG (NEG); BENZODIAZEPINES POS (NEG); COCAINE NEG (NEG); MARIJUANA NEG (NEG); OPIATES NEG (NEG); TRICYCLIC ANTIDEPRESSANTS NEG (NEG); U METHADONE NEG (NEG)
[2016-09-08 08:09] LABS: BASOPHIL% 0.9 % (0-2.5); EOSINOPHIL# 0.3 X10e3 (0-0.7); EOSINOPHIL% 9.4 % (0.0-7.0); HEMATOCRIT 34.7 % (38.0-50.0); HEMOGLOBIN 11.6 gm/dL (13.0-16.0); LYMPHOCYTE# 0.8 X10e3 (1.0-3.5); LYMPHOCYTE% 24.7 % (17.0-45.0); MEAN CELL VOLUME 94.7 FL (83-96); MEAN CORPUSCULAR HEMOGLOBIN 31.5 PG (28-34); MEAN CORPUSCULAR HGB CONC 33.3 g/dL (30-36); MEAN PLATELET VOLUME 7.8 FL (6.5-11.5); MONOCYTE# 0.4 X10e3 (0-1.0); MONOCYTE% 13.1 % (3.0-12.0); NEUTROPHIL# 1.8 X10e3 (1.5-7.1); NEUTROPHIL% 51.9 % (40-75); PLATELET COUNT 83 X10e3 (140-420); RED BLOOD COUNT 3.67 X10e (3.90-5.60); RED CELL DISTRIBUTION WIDTH 15.5 % (11.0-15.5); WHITE BLOOD COUNT 3.4 X10e3 (4.0-10.5)
[2016-09-08 08:10] LABS: DIFF IND NO
[2016-09-08 08:52] LABS: ALBUMIN SERUM 3.6 g/dL (3.5-5.0); BILIRUBIN,TOTAL 0.9 mg/dL (0.2-2.0); BUN/CREATININE RATIO 1.5; CALCIUM SERUM 9.3 mg/dL (8.4-10.2); MAGNESIUM 2.2 mg/dL (1.6-3.0); PHOSPHOROUS 4.3 mg/dL (2.5-4.6); POTASSIUM 3.9 mmol/L (3.5-5.1); PROTEIN TOTAL SERUM 7.1 g/dL (6.0-8.3)
[2016-09-08 08:56] LABS: CREATININE SERUM 5.3 mg/dL (0.6-1.4)
[2016-09-09 07:46] LABS: HEMATOCRIT 33.7 % (38.0-50.0); HEMOGLOBIN 11.2 gm/dL (13.0-16.0); MEAN CELL VOLUME 93.6 FL (83-96); MEAN CORPUSCULAR HEMOGLOBIN 31.2 PG (28-34); MEAN CORPUSCULAR HGB CONC 33.4 g/dL (30-36); MEAN PLATELET VOLUME 7.8 FL (6.5-11.5); RED BLOOD COUNT 3.6 X10e (3.90-5.60); RED CELL DISTRIBUTION WIDTH 15.3 % (11.0-15.5)
[2016-09-09 08:33] LABS: BUN/CREATININE RATIO 2.36; CALCIUM SERUM 9.1 mg/dL (8.4-10.2); GLOM FILT RATE Estimated 7.1 mL/min (>60); POTASSIUM 3.8 mmol/L (3.5-5.1)
[2016-09-09 08:34] LABS: CREATININE SERUM 7.6 mg/dL (0.6-1.4)
[2016-09-11 09:10] LABS: HEMATOCRIT 34.6 % (38.0-50.0); HEMOGLOBIN 11.6 gm/dL (13.0-16.0); MEAN CORPUSCULAR HEMOGLOBIN 31.3 PG (28-34); MEAN CORPUSCULAR HGB CONC 33.7 g/dL (30-36); MEAN PLATELET VOLUME 7.9 FL (6.5-11.5); RED BLOOD COUNT 3.72 X10e (3.90-5.60); RED CELL DISTRIBUTION WIDTH 15.5 % (11.0-15.5); WHITE BLOOD COUNT 5.2 X10e3 (4.0-10.5)
[2016-09-11 09:45] LABS: BUN/CREATININE RATIO 2.46; CREATININE SERUM 6.9 mg/dL (0.6-1.4); POTASSIUM 3.6 mmol/L (3.5-5.1)
[2016-09-11 12:18] LABS: FOLATE (FOLIC ACID) 8.4 ng/mL (>5.8)
[2016-09-13 09:22] LABS: HEMATOCRIT 35.8 % (38.0-50.0); HEMOGLOBIN 11.8 gm/dL (13.0-16.0); INR 1.1; MEAN CELL VOLUME 94.4 FL (83-96); MEAN CORPUSCULAR HEMOGLOBIN 31.2 PG (28-34); MEAN CORPUSCULAR HGB CONC 33.1 g/dL (30-36); MEAN PLATELET VOLUME 9.1 FL (6.5-11.5); PROTHROMBIN TIME (PATIENT) 11.8 SECONDS (9.6-11.5); RED BLOOD COUNT 3.79 X10e (3.90-5.60); RED CELL DISTRIBUTION WIDTH 15.3 % (11.0-15.5)
[2016-09-13 09:32] LABS: BUN/CREATININE RATIO 3.17; CALCIUM SERUM 8.5 mg/dL (8.4-10.2); CREATININE SERUM 8.5 mg/dL (0.6-1.4); GLOM FILT RATE Estimated 6.2 mL/min (>60); POTASSIUM 3.7 mmol/L (3.5-5.1)
[2016-09-14] MEDS ORDERED: COGENTIN1 M1 PO (15:03)
[2016-09-14] MEDS ORDERED: HALDOL PO (15:03)
== END 2016-09-14 18:03 | disposition home health service (06) | DRG 876 ==
LOC: CED 08:23 → C3A PCU 12:40 → CED 12:40 → CEDOF 12:40 → CED 13:20 → CEDOF 13:20 → C3A PCU 15:32 → CEDOF 15:32 → C3A PCU 09-08 07:08 → C2A 09-09 13:30 → C3A PCU 09-09 13:30 → C2A 09-09 13:30 → CEDOF 09-09 13:30 → C3A PCU 09-10 00:42 → C2A 09-10 00:42
PROVIDERS: Emergency Medicine; Family Medicine; Internal Medicine; Physician Assistant Medical; Surgery; Surgery Vascular Surgery
PROC: 5A1D60Z (ICD-10-PCS; 2016-09-09)
PROC: 02HV33Z Insertion of Infusion Device into Superior Vena Cava, Percutaneous Approach (ICD-10-PCS; 2016-09-09)
PROC: B548ZZA Ultrasonography of Superior Vena Cava, Guidance (ICD-10-PCS; 2016-09-09)
PROC: B50WYZZ Plain Radiography of Dialysis Shunt/Fistula using Other Contrast (ICD-10-PCS; 2016-09-13)
PROC: 03C60ZZ Extirpation of Matter from Left Axillary Artery, Open Approach (ICD-10-PCS; principal; 2016-09-13 07:30)
PROC: 05780DZ Dilation of Left Axillary Vein with Intraluminal Device, Open Approach (ICD-10-PCS; 2016-09-13 07:30)
DX: F23 Brief psychotic disorder (principal); I12.0 Hypertensive chronic kidney disease with stage 5 chronic kidney disease or end stage renal disease; N18.6 End stage renal disease; D69.59 Other secondary thrombocytopenia; F05 Delirium due to known physiological condition; N39.0 Urinary tract infection, site not specified; F11.20 Opioid dependence, uncomplicated; T82.868A Thrombosis due to vascular prosthetic devices, implants and grafts, initial encounter; R41.82 Altered mental status, unspecified; F17.210 Nicotine dependence, cigarettes, uncomplicated; Z99.2 Dependence on renal dialysis; B19.20 Unspecified viral hepatitis C without hepatic coma; K74.60 Unspecified cirrhosis of liver; E03.9 Hypothyroidism, unspecified; F41.9 Anxiety disorder, unspecified; Y71.1 Therapeutic (nonsurgical) and rehabilitative cardiovascular devices associated with adverse incidents; E78.5 Hyperlipidemia, unspecified; Z88.0 Allergy status to penicillin; Z87.442 Personal history of urinary calculi
CPT/HCPCS: 36415; 70450; 71010; 75710; 76001; 76937; 77001; 80048; 80053; 80076; 80307; 81003; 82140; 82553; 82607; 82746; 82947; 83735; 84100; 84439; 84443; 84484; 85025; 85027; 85610; 85730; 87040; 87086; 87806; 93005; 94760; 99285; C1725; C1751; C1769; C1876; G0480; J0515; J1630; J1644; J1650; J1956; J2060; J2720; J2765; J3010; J3370; Q4081

== ENCOUNTER 2016-11-27 09:51 | Observation (INO) | payer MEDICARE ==
[~2016-11-27] VITALS: Ht 182.9 cm; Wt 77.1 kg
--- NOTE | ~2016-11-27 | CO ---
Unit #: [id number] #: [id number] Patient: RUDDY MARTINEZ [id number] [address] [place], [place] [address] [id number] I MR#: [id number] NAME: RUDDY MARTINEZ ROOM: 448 Age: 56 Sex: M Admission Date: 11/27/2016 : 1960 Attending Physician: Barbara Melissa M.D. Primary Care Physician: Jonathon Roman M.D. Consultation Date: 11/27/2016 CONSULTATION REPORT REASON FOR CONSULT End stage renal disease. Thank you very much for asking us to see this patient in consultation. This patient is a 56-year-old male with a history of end stage renal disease on hemodialysis every Sunday, and Sunday, who apparently was confused earlier today and brought into the hospital and was diagnosed with hypoglycemia. The patient was admitted. We were asked to see the patient due to his renal failure. The patient, according to his , had not been eating well the last few days. He did have some episodes of nausea and vomiting and a little diarrhea on Sunday but none since then but apparently is not eating well over the last few days but really had a hard time telling me exactly how much. He is alert and oriented to place and person but did not know the year for the first two to three answers. He denies any chest pain, shortness of breath, any severe pain, abdominal pain currently. PAST MEDICAL HISTORY 1. History of CVA in the past. 2. History of hepatitis C. 3. History of hypothyroidism. 4. History of end stage renal disease. 5. History of hypertension. 6. History of cirrhosis. 7. He has a history of IV drug abuse in the past although apparently denies any recently. 8. History of leg wounds in the past. 9. History of anxiety. 10. History of chronic thrombocytopenia. MEDICATIONS His medicines at home, in the handwritten sheet, appears to be: 1. Renvela 800 mg p.o. t.i.d. with meals. 2. Ativan 1 mg b.i.d. 3. Levothyroxine 100 mcg a day. 4. Benztropine 1 mg t.i.d. 5. Trazodone 100 mg q. h.s. 6. Clonidine 0.3 mg q.i.d. REVIEW OF SYSTEMS As mentioned in the HPI. SOCIAL HISTORY Positive smoker. Denies any alcohol or any IV drugs now. Unit #: [id number] #: [id number] Patient: RUDDY MARTINEZ FAMILY HISTORY Noncontributory. ALLERGIES Include Rocephin. PHYSICAL EXAMINATION GENERAL: He is alert. VITAL SIGNS: Temperature is 98.1, pulse 78-88, blood pressure 116-158/67-77. HEENT: Normocephalic, atraumatic. Pupils are equal, round, reactive to light. Extraocular muscles are intact. Hearing appears to be normal. Mouth is clear. No erythema, no exudate. NECK: Supple. No JVD. CARDIAC: regular rhythm without a rub. No S3, no S4. LUNGS: Clear bilaterally. ABDOMEN: Bowel sounds positive. Nontender, soft. EXTREMITIES: He has no significant lower extremity swelling. He has a fistula in his left upper arm with a good thrill. NEURO: Again, he is alert. Questionable a little confusion. : Deferred. DIAGNOSTIC STUDIES IMAGING: CT scan of the head is pending. LABORATORY: He had a UA that shows specific gravity 1.01, 3+ protein, 10-25 WBCs, 5-10 RBCs, positive Urine culture is pending. He had a drug screen that was positive for benzos. Otherwise, drug screen is negative. Also negative is acetaminophen, Tylenol and alcohol. Sodium is 134, potassium 3.3, chloride is 94, bicarb is 27, BUN and creatinine 27 and 7.2 with glucose of 106 now, calcium is 12.5, white count 8700, platelets 74,000, calcium 9.4. ASSESSMENT AND PLAN 1. End stage renal disease: Certainly, his potassium and his volume status appears to be pretty good. I don't notice any extra volume on board. Again, potassium level is on the low side. Will plan on dialyzing him tomorrow. We will follow his electrolytes. 2. Hypoglycemia: Admitting physician asked me to address his fluids and will go ahead and put him on some D5 normal saline at 60 mL/hour but certainly watch for volume overload with his end stage renal disease. Will give him one dose of oral potassium as well today. 3. Intermittently decreased mental status per primary. 4. Probable urinary tract infection: Will await urine culture results. Dictated by.Alexandra Landon/brian Unit #: [id number] #: [id number] Patient: RUDDY MARTINEZ TD: 11/28/2016 07:49 JOB #: [id number] CONSULTATION REPORT Page 1 of 1 X Mannie Cooley MD X CONSULTATION REPORT
--- NOTE | ~2016-11-27 | CR72 ---
[facility] A Service of [facility] RADIOLOGY TEXT RESULTS PATIENT: RUDDY MARTINEZ LOCATION: CEDOF : 56 UNIT #: [id number] AGE: [address]: GEORGE MELISSA MD SEX: M ORDER DR: [id number] [facility] [address] [facility] [facility]. [place], [place] [address] [id number] I MR#: [id number] Acc #: [id number] NAME: RUDDY MARTINEZ : 1960 SEX: M STUDY DATE/TIME: 11/27/2016 UNIT: CEDOF ROOM: 04657 STUDY DESCRIPTION: CR Chest Single View Portable Attending Physician: George Melissa M.D. Ordering Physician: Donato Mcintosh M.D. Primary Care Physician: Jonathon Roman M.D. MEDICAL IMAGING REPORT This report is preliminary unless electronic signature is present EXAM Chest portable 11/27/2016 1102 hours HISTORY 56-year-old man with low blood sugar and confusion today. History of hypertension and hypothyroidism, diabetes and hepatitis C. COMPARISON 09/07/2016. FINDINGS Portable upright chest demonstrates stable mild cardiac enlargement with minimally tortuous aorta. The pulmonary vascularity is normal. The lungs are clear and there are no effusions. There is chronic scarring at the medial left lung base. IMPRESSION Heart size at the upper limits of normal with minimally tortuous aorta, unchanged. There is stable linear scarring at the medial left lung base. There is no acute pulmonary or pleural finding. Dictated by... Coral Mendez M.D. THIS IS AN ELECTRONICALLY VERIFIED REPORT Coral Mendez M.D. at 11/27/2016 6:53 PM ROSA/lily TD: 11/27/2016 17:08 JOB #: [id number] MEDICAL IMAGING REPORT [facility] A Service of [facility] RADIOLOGY TEXT RESULTS PATIENT: RUDDY MARTINEZ LOCATION: CEDOF : 56 UNIT #: [id number] AGE: [address]: GEORGE MELISSA MD SEX: M ORDER DR: Page 1 of 1 COPY
--- NOTE | ~2016-11-27 | EKG ---
PATIENT: RUDDY MARTINEZ UNIT #: [id number] Ventricular Rate: 88 BPM Atrial Rate: 88 BPM P-R Interval: 154 ms QRS Duration: 84 ms Q-T Interval: 362 ms QTC Calculation(Bezet): 438 ms P [place]: 11 degrees Calculated R [place]: -24 degrees Calculated T [place]: -5 degrees Diagnosis Line: Normal sinus rhythm Diagnosis Line: Minimal voltage criteria for LVH, may be normal Diagnosis Line: variant Diagnosis Line: Borderline ECG Diagnosis Line: When compared with ECG of 07-SEP-2016 09:13, Diagnosis Line: T wave inversion now evident in Inferior leads Diagnosis Line: Confirmed by NABEEL HILL MD ([id number]) on Diagnosis Line: 11/28/2016 5:04:21 PM INTERPRETING MD: SERGIO BAUER
--- NOTE | ~2016-11-27 | CT71 ---
[facility] A Service of [facility] RADIOLOGY TEXT RESULTS PATIENT: RUDDY MARTINEZ LOCATION: C4B 448-01 : 56 UNIT #: [id number] AGE: [address]: GEORGE MELISSA MD SEX: M ORDER DR: [id number] [facility] [address] [facility] [place] [facility]. [place], [place] [address] [id number] I MR#: [id number] Acc #: [id number] NAME: RUDDY MARTINEZ : 1960 SEX: M STUDY DATE/TIME: 11/27/2016 11:39 UNIT: CEDOF ROOM: 28087 STUDY DESCRIPTION: CT Head Wo Contrast Attending Physician: George Melissa M.D. Ordering Physician: Donato Mcintosh M.D. Primary Care Physician: Jonathon Roman M.D. MEDICAL IMAGING REPORT This report is preliminary unless electronic signature is present EXAM Noncontrast CT head 11/27/2016 HISTORY Confusion today. Low blood sugar level. Additional history of hypertension, kidney failure, diabetes. Hepatitis C. COMPARISON Noncontrast CT head 09/07/2016. TECHNIQUE This CT exam was performed with one or more of the following radiation dose reduction techniques: automatic exposure control, adjustment of mA and/or kV according to patient size, and iterative reconstruction. FINDINGS Mild parenchymal atrophy with compensatory prominence of ventricles and extraaxial spaces has a similar appearance to the previous exam. No acute intracranial hemorrhage, mass lesion, mass effect or midline shift is identified. Ventricular configuration appears stable. Jenkins matter-white matter junction distinction appears preserved without CT evidence of acute or evolving infarct. No acute calvarial abnormality is identified. Major paranasal sinuses and mastoid air cells appear clear. IMPRESSION 1. No acute intracranial findings. No significant change compared to 09/07/2016. Dictated by... Ariadna Perez M.D. THIS IS AN ELECTRONICALLY VERIFIED REPORT [facility] A Service of [facility] RADIOLOGY TEXT RESULTS PATIENT: RUDDY MARTINEZ LOCATION: C4 448-01 : 56 UNIT #: [id number] AGE: [address]: GEORGE MELISSA MD SEX: M ORDER DR: Ariadna Perez M.D. at 11/28/2016 7:08 AM NEFTALY/lily TD: 11/27/2016 18:39 JOB #: [id number] MEDICAL IMAGING REPORT Page 1 of 1 COPY
--- NOTE | ~2016-11-27 | HP ---
Unit #: [id number] #: [id number] Patient: RUDDY MARTINEZ [id number] [address] [address] [id number] I MR#: [id number] NAME: RUDDY MARTINEZ ROOM: 29585 Age: 56 Sex: M Admission Date: 11/27/2016 : 1960 Attending Physician: George Melissa M.D. Primary Care Physician: Jonathon Roman M.D. HISTORY AND PHYSICAL CHIEF COMPLAINT Low blood sugar. HISTORY OF PRESENT ILLNESS The patient is a 56-year-old male with a history of end-stage renal disease, on hemodialysis, cirrhosis secondary to hepatitis C, hypertension, hypothyroidism, and anxiety, brought to the emergency room with low blood sugar. The patient states that the patient had a light dinner last night and went to sleep. The patient was found to be with low blood sugar by his at 9 o'clock this morning with sugar in the range of 20s. The patient was brought to the emergency room for the above reasons. The patient denies any history of diabetes. The patient is not sure whether he took his 's insulin last night. The patient denies any headache and denies any nausea, vomiting, or abdominal pain. Patient's dialysis is today, and he is waiting for dialysis today. Patient's urine toxicology is positive for only benzodiazepine, and he takes lorazepam for anxiety. He denies any fevers or chills. PAST MEDICAL HISTORY 1. Opiate and heroin use in the past. 2. Bilateral leg wounds. 3. Stage 2-3 cirrhosis. 4. Hepatitis. 5. Hypertension. 6. Hypothyroidism. 7. End-stage renal disease, on hemodialysis. 8. Anxiety. PAST SURGICAL HISTORY 1. Lithotripsy. 2. Fistula left upper extremity. HOME MEDICATIONS 1. Renagel. 2. Trazodone. 3. Acetaminophen. 4. Diphenhydramine. 5. Cogentin. 6. Levothyroxine. 7. Lorazepam. ALLERGIES Penicillin. Unit #: [id number] #: [id number] Patient: RUDDY MARTINEZ SOCIAL HISTORY The patient is and lives with his . History of smoking in the past and history of IV drugs in the past. He currently denies any abuse. FAMILY HISTORY Reviewed and none. REVIEW OF SYSTEMS Positive for low blood sugar. Denies nausea or vomiting, denies abdominal pain, and denies generalized weakness. Other systems were reviewed and negative. PHYSICAL EXAMINATION GENERAL: Patient is lying in bed not in acute distress. VITAL SIGNS: Temperature 98.1, pulse 88, respiratory rate 20, blood pressure 158/77, and saturating 98% on room air. HEENT: Head atraumatic, normocephalic. Pupils equal, round, and reactive to light and accommodation. Extraocular movements are intact. NECK: Supple. LUNGS: Decreased air entry at the bases. HEART: Regular rate and rhythm. ABDOMEN: Soft. Positive bowel sounds. EXTREMITIES: Positive for fistula in the left upper extremity and bilateral lower extremity wounds. NEUROLOGIC: Alert, awake, and oriented x3. DIAGNOSTIC STUDIES LABORATORY: WBC 8.3, hemoglobin 12.5, hematocrit 36.3, and platelets 74,000. Glucose is 86. Ammonia is 23. Troponin less than 0.05. Urinalysis shows 2+ leukocyte esterase, 3+ protein, 2+ blood, urine WBCs 10-25, and 2-5 urine hyaline crystals. Urine drug screen is positive for benzodiazepines. Sodium 134, potassium 3.3, chloride 94, BUN 29, creatinine 7.2, calcium 9.4, AST 29, ALT 15, and alkaline phosphatase 76. INR is 1. ASSESSMENT 1. Hypoglycemia. 2. End-stage renal disease, on hemodialysis. PLAN Admit the patient to observation with telemetry. Will have a Renal consult. Will Renal manage the IV fluids. Check Accu-Cheks and check hemoglobin A1c and C-peptide for the insulin administration. Replace the potassium per protocol. Further recommendations will follow. Dictated by Alexandra Spear TD: 11/27/2016 16:36 Unit #: [id number] #: [id number] Patient: RUDDY MARTINEZ JOB #: [id number] HISTORY AND PHYSICAL Page 1 of 1 X GEORGE MELISSA MD HISTORY AND PHYSICAL
--- NOTE | ~2016-11-27 | DS ---
Unit #: [id number] #: [id number] Patient: RUDDY MARTINEZ [id number] [address] [place], [place] [address] [id number] I MR#: [id number] NAME: RUDDY MARTINEZ ROOM: 320 Age: 56 Sex: M Admission Date: 11/27/2016 : 1960 Discharge Date: 11/28/2016 Attending Physician: Hima Mcwilliams M.D. Primary Care Physician: Jonathon Roman M.D. DISCHARGE SUMMARY PRIMARY DIAGNOSIS Hypoglycemia. SECONDARY DIAGNOSES 1. Cirrhosis. 2. End stage renal disease. 3. Urinary tract infection. 4. History of intravenous and p.o. opiate drug abuse. HOSPITAL COURSE Patient was placed in observation status for hypoglycemia. This improved with IV fluids and patient did received dialysis while here in the hospital. He was noted to have some white blood cells in his urine and was started on 10 days of low dose Levaquin at the recommendation of nephrology with Dr. Zac Cooley. The presumed cause of his hypoglycemia, which was also present on hospitalization in May, is likely related to his cirrhosis with diminished gluconeogenesis, as well as his end stage kidney disease with prolonged insulin half-life. I discussed with Dr. Cooley, considering a possible change to a glucose free dialysate with dialysis as it has been theorized that the glucose dose can simulate insulin secretion, which then can lead to hypoglycemia in the next several hours postdialysis in these patient's with cirrhosis. Other possibilities include surreptitious use of his 's insulin. There is a protein-C that was ordered at the time of her presentation but that is pending at the time of discharge. Also pending is a TSH and a hemoglobin A1c. I did attempt to call the patient's but could not get an answer of the phone numbers listed on the patient's information. There were no voicemails available on either of the phone numbers either. DISCHARGE DISPOSITION To home. DISCHARGE STATUS Stable. DISCHARGE ACTIVITY Ad matt. DISCHARGE DIET Dialysis diet. Unit #: [id number] #: [id number] Patient: RUDDY MARTINEZ DISCHARGE FOLLOWUP With dialysis as regularly scheduled and with his PCP in one to two weeks. DISCHARGE MEDICATIONS 1. Levaquin 250 mg p.o. every other day for ten days. 2. Tylenol with diphenhydramine 500 mg p.o. q.6 hours p.r.n. pain. 3. Trazodone 100 mg p.o. q.h.s. 4. Cogentin 1 mg p.o. t.i.d. 5. Lorazepam 1 mg p.o. b.i.d. 6. Renagel 1600 mg p.o. t.i.d. 7. Levothyroxine 100 mcg p.o. daily. Dictated by... Hima Mcwilliams M.D. ESTHELA/lizeth TD: 11/30/2016 11:22 JOB #: [id number] DISCHARGE SUMMARY Page 1 of 1 X Hima Mcwilliams MD X DISCHARGE SUMMARY
[~2016-11-27 09:51] MED LIST changes: +COGENTIN1 M1 PO; +COGENTIN1 MG PO; +DESYREL100 MG PO; +EQ ACETAMINOPH PO; +FLEXERIL10 MG PO; +HALDOL PO; +LEVOTHYROXINE100 MC1 PO; +LIPITOR40 MG PO; +LORAZEPAM1 MG PO; +RENAGEL800 MG PO
[2016-11-27 11:13] LABS: BASOPHIL% 0.1 % (0-2.5); EOSINOPHIL% 0.4 % (0.0-7.0); HEMATOCRIT 36.3 % (38.0-50.0); HEMOGLOBIN 12.5 gm/dL (13.0-16.0); LYMPHOCYTE# 0.4 X10e3 (1.0-3.5); LYMPHOCYTE% 5.2 % (17.0-45.0); MEAN CELL VOLUME 92.7 FL (83-96); MEAN CORPUSCULAR HEMOGLOBIN 31.9 PG (28-34); MEAN CORPUSCULAR HGB CONC 34.5 g/dL (30-36); MEAN PLATELET VOLUME 8.3 FL (6.5-11.5); MONOCYTE# 0.4 X10e3 (0-1.0); MONOCYTE% 4.7 % (3.0-12.0); NEUTROPHIL# 7.5 X10e3 (1.5-7.1); NEUTROPHIL% 89.6 % (40-75); RED BLOOD COUNT 3.92 X10e (3.90-5.60); RED CELL DISTRIBUTION WIDTH 15.9 % (11.0-15.5); WHITE BLOOD COUNT 8.3 X10e3 (4.0-10.5)
[2016-11-27 11:14] LABS: PARTIAL THROMBOPLASTIN TIME 25.7 SECONDS (23.5-31.3); PROTHROMBIN TIME (PATIENT) 10.5 SECONDS (10.0-11.7)
[2016-11-27 11:29] LABS: ACETAMINOPHEN <10 ug/mL; ALCOHOL BLOOD <5 mg/dL (0); ALKALINE PHOSPHATASE 76 U/L (32-92); ALT (SGPT) 15 U/L (10-40); AST (SGOT) 29 U/L (10-42); BILIRUBIN, DIRECT 0.1 mg/dL (0.0-0.2); BILIRUBIN,INDIRECT 0.9 mg/dL (0.0-0.9); BLOOD UREA NITROGEN 29 mg/dL (9-23); BUN/CREATININE RATIO 4.02; CALCIUM SERUM 9.4 mg/dL (8.4-10.2); CARBON DIOXIDE 27 mmol/L (22-31); CHLORIDE 94 mmol/L (100-111); CREATININE SERUM 7.2 mg/dL (0.6-1.4); GLOM FILT RATE Estimated 7.6 mL/min (>60); GLUCOSE FASTING 105 mg/dL (70-110); POTASSIUM 3.3 mmol/L (3.5-5.1); PROTEIN TOTAL SERUM 7.3 g/dL (6.0-8.3); SALICYLATE <4.0 mg/dL; SODIUM 134 mmol/L (135-145)
[2016-11-27 11:40] LABS: URINE SOURCE CLEAN CATCH
[2016-11-27] MEDS ORDERED: PATIENT'S PHARMACY (11:43)
[2016-11-27] MEDS ORDERED: ATIVAN PO (11:43)
[2016-11-27 11:45] LABS: URINE APPEARANCE CLEAR; URINE BILIRUBIN NEG (NEG); URINE BLOOD 2+ (NEG); URINE COLOR YELLOW; URINE GLUCOSE NEG (NEG); URINE KETONE NEG (NEG); URINE LEUKOCYTE ESTERASE 2+ (NEG); URINE NITRATE NEG (NEG); URINE PROTEIN 3+ (NEG); URINE UROBILINOGEN 0.2 MG/DL (NEG)
[2016-11-27 11:47] LABS: CULTURE INDICATED? YES; URINE BACTERIA AUWI NEG (NEGATIVE); URINE SQUAMOUS EPITHELIAL CELL OCC /[HPF]
[2016-11-27 11:57] LABS: AMPHETAMINE NEG (NEG); BARBITURATES NEG (NEG); BENZODIAZEPINES POS (NEG); COCAINE NEG (NEG); MARIJUANA NEG (NEG); OPIATES NEG (NEG); TRICYCLIC ANTIDEPRESSANTS NEG (NEG); U METHADONE NEG (NEG)
[2016-11-27 12:01] LABS: DIFF IND YES; PLATELET COUNT 74 X10e3 (140-420)
[2016-11-27 12:20] LABS: POC - CKMB 3.6 ng/mL (0.0-7.9); POC - TROPONIN <0.05 ng/mL (<=0.05)
[2016-11-27 13:27] LABS: ANISOCYTOSIS SL; PLATELET ESTIMATE DECREASED (NORMAL)
[2016-11-28] MEDS ORDERED: LEVAQUIN I750 MG/151 PO (14:19)
[2016-11-28 14:22] LABS: BUN/CREATININE RATIO 5.5; CALCIUM SERUM 9.2 mg/dL (8.4-10.2); CREATININE SERUM 8.9 mg/dL (0.6-1.4); GLOM FILT RATE Estimated 5.9 mL/min (>60); POTASSIUM 4.8 mmol/L (3.5-5.1)
[2016-11-28 14:27] LABS: HEMATOCRIT 35.5 % (38.0-50.0); HEMOGLOBIN 10.4 gm/dL (13.0-16.0); MEAN CELL VOLUME 94.8 FL (83-96); MEAN CORPUSCULAR HEMOGLOBIN 27.6 PG (28-34); MEAN CORPUSCULAR HGB CONC 29.2 g/dL (30-36); MEAN PLATELET VOLUME 8.8 FL (6.5-11.5); RED BLOOD COUNT 3.75 X10e (3.90-5.60); RED CELL DISTRIBUTION WIDTH 15.9 % (11.0-15.5); WHITE BLOOD COUNT 3.5 X10e3 (4.0-10.5)
[2016-11-28] MEDS ORDERED: LEVAQUIN250 MG PO (15:01)
[2016-11-29 10:55] LABS: POC - CKMB 2.7 ng/mL (0.0-7.9); POC - TROPONIN <0.05 ng/mL (<=0.05)
== END 2016-11-28 17:30 | disposition home or self-care (01) ==
LOC: CED 09:51 → CEDOF 15:35 → C3A PCU 15:35 → CEDOF 16:17 → CED 16:17 → C4B 20:50 → CEDOF 20:50 → C4B 20:50 → C3A PCU 11-28 09:34 → C4B 11-28 09:34 → C3A PCU 11-28 09:34
PROVIDERS: Emergency Medicine; Internal Medicine
DX: E16.2 Hypoglycemia, unspecified (principal); K74.60 Unspecified cirrhosis of liver; N18.6 End stage renal disease; N39.0 Urinary tract infection, site not specified; Z99.2 Dependence on renal dialysis; Z87.898 Personal history of other specified conditions; Z87.891 Personal history of nicotine dependence
CPT/HCPCS: 36415; 70450; 71010; 80048; 80076; 80307; 81003; 82140; 82553; 82947; 84484; 85025; 85027; 85610; 85730; 87040; 87086; 93005; 96365; 96374; 96375; 96376; 99285; G0378; G0480